=== PATIENT | male | born 1935 | race Caucasian/White ===

== ENCOUNTER 2019-05-27 14:26 | Emergency (ER) | payer MEDICARE, BC ==
[2019-05-27 15:37] LABS: Anisocytosis Slight; Basophils % (A) 0 %; Eosinophils # (A) 0.1 k/uL (0-0.7); Eosinophils % (A) 2 %; HCT 36.3 % (39.0-53.0); HGB 11.4 gm/dL (13.0-17.5); Lymphocytes # (A) 1.4 k/uL (1.0-4.8); Lymphocytes % (A) 22 %; MCH 26.2 pg (25.0-35.0); MCHC 31.5 g/dL (31.0-37.0); MCV 83.2 fL (80.0-100.0); Microcytosis Slight; Monocytes # (A) 0.6 k/uL (0-1.0); Monocytes % (A) 10 %; Neutrophils # (A) 3.8 k/uL (1.3-7.7); Neutrophils % (A) 61 %; Platelet Count 134 k/uL (150-450); RBC 4.36 m/uL (4.30-5.90); RDW 19.7 % (11.5-15.5); WBC 6.1 k/uL (3.8-10.6)
[2019-05-27 15:46] LABS: Albumin 3.7 g/dL (3.5-5.0); Calcium 9.1 mg/dL (8.4-10.2); Potassium 4.6 mmol/L (3.5-5.1); Total Bilirubin 1.3 mg/dL (0.2-1.3); Total Protein 6.5 g/dL (6.3-8.2)
[2019-05-27 15:47] LABS: INR 2.2 (<1.2); Partial Thromboplastin Time 33.2 sec (22.0-30.0)
--- NOTE | 2019-05-27 15:50 | XR ---
EXAMINATION TYPE: XR chest 2V DATE OF EXAM: 05/27/2019 COMPARISON: 11/29/2015 TECHNIQUE: PA and lateral views submitted. HISTORY: Shortness of breath FINDINGS: The lungs are clear and there is no pneumothorax, pleural effusion, or focal pneumonia. Cardiac dev ice seen and is atherosclerotic change aorta. Heart size mildly prominent. Arthropathy shoulders. Deg enerative changes of the spine. There is a wedge deformity midthoracic spine of indeterminate age. IMPRESSION: 1. Cardiomegaly
[2019-05-27] MEDS ORDERED: FUROSEMIDE 10 MG/ML 4 ML VIAL IV STA (16:19)
--- NOTE | 2019-05-27 16:27 | ED ---
Recheck HPI - General Chief Complaint: Recheck/Abnormal Lab/Rx Stated Complaint: CHF Time Seen by Provider: 05/27/19 15:07 Source: patient, family Mode of arrival: ambulatory Limitations: no limitations - Related Data Home Medications Medication Instructions Recorded Confirmed Aspirin EC [Ecotrin Low Dose] 81 mg PO DAILY 10/19/14 05/27/19 Digoxin [Digox] 125 mcg PO DAILY 10/19/14 05/27/19 Lisinopril [Zestril] 2.5 mg PO HS 10/19/14 05/27/19 Metoprolol Succinate (ER) [Toprol 25 mg PO DAILY 10/19/14 05/27/19 XL] Rosuvastatin Calcium [Crestor] 10 mg PO HS 10/19/14 05/27/19 Warfarin [Coumadin] 2.5 mg PO SUMOTUWETHSA 10/19/14 05/27/19 Warfarin [Coumadin] 5 mg PO FR 10/19/14 05/27/19 ALPRAZolam [Xanax] 0.25 mg PO HS 05/27/19 05/27/19 Cetirizine HCl [Zyrtec] 10 mg PO DAILY 05/27/19 05/27/19 Cholestyramine (with Sugar) 4 gm PO DAILY 05/27/19 05/27/19 [Cholestyramine Packet] Furosemide [Lasix] 40 mg PO BID@0800,1200 05/27/19 05/27/19 Melatonin 5 mg PO HS 05/27/19 05/27/19 Spironolactone 25 mg PO DAILY 05/27/19 05/27/19 risperiDONE [RisperDAL] 0.5 mg PO BID 05/27/19 05/27/19 Allergies Allergy/AdvReac Type Severity Reaction Status Date / Time No Known Allergies Allergy Verified 05/27/19 15:23 Review of Systems ROS Statement: Those systems with pertinent positive or pertinent negative responses have been documented in the HPI. ROS Other: All systems not noted in ROS Statement are negative. Past Medical History Past Medical History: Cancer, Heart Failure, GERD/Reflux, Hyperlipidemia, Hypertension, Myocardial Infarction ([place]), Prostate Disorder Additional Past Medical History / Comment(s): CLAUSTROPHOBIA, ENLARGED PROSTATE, had mass in bladder was removed 2013- pt states was not cancerous. NOSE BLEED 2 YRS AGO-WAS CAUTERIZED BY DR KATE, BEEN HAVING NOSEBLEEDS FOR THE LAST 6 WEEKS, WAS IN THE EMERGENCY ROOM X 3 LAST TIME WAS SAT. NITE. DEAF RT EAR, HEARING AIDE LEFT EAR Last Myocardial Infarction Date:: APRIL 2013 History of Any Multi-Drug Resistant Organisms: None Reported Past Surgical History: AICD, Heart Catheterization, Joint Replacement Additional Past Surgical History / Comment(s): EMMANUEL KNEE REPLACEMENT. 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 Type of Cardiac Device: AICD Device Placement Date:: JUL 2013 Past Psychological History: No Psychological Hx Reported Smoking Status: Never smoker Past Alcohol Use History: Occasional Past Drug Use History: None Reported - Past Family History Sister(s) Family Medical History: Cancer Additional Family Medical History / Comment(s): BREAST CANCER General Exam Limitations: no limitations Course Vital Signs 05/27/19 05/27/19 14:28 15:12 Temperature 97.8 F Pulse Rate 74 77 Respiratory 18 22 Rate Blood Pressure 94/58 100/67 O2 Sat by Pulse 93 L 99 Oximetry Medical Decision Making - Lab Data Result diagrams: 05/27/19 15:15 05/27/19 15:15 Lab Results 05/27/19 05/27/19 05/27/19 Range/Units 15:15 15:15 15:15 WBC 6.1 (3.8-10.6) k/uL RBC 4.36 (4.30-5.90) m/uL Hgb 11.4 L (13.0-17.5) gm/dL Hct 36.3 L (39.0-53.0) % MCV 83.2 (80.0-100.0) fL MCH 26.2 (25.0-35.0) pg MCHC 31.5 (31.0-37.0) g/dL RDW 19.7 H (11.5-15.5) % Plt Count 134 L (150-450) k/uL Neutrophils % 61 % Lymphocytes % 22 % Monocytes % 10 % Eosinophils % 2 % Basophils % 0 % Neutrophils # 3.8 (1.3-7.7) k/uL Lymphocytes # 1.4 (1.0-4.8) k/uL Monocytes # 0.6 (0-1.0) k/uL Eosinophils # 0.1 (0-0.7) k/uL Basophils # 0.0 (0-0.2) k/uL Anisocytosis Slight Microcytosis Slight PT (9.0-12.0) sec INR (<1.2) APTT (22.0-30.0) sec Sodium 135 L (137-145) mmol/L Potassium 4.6 (3.5-5.1) mmol/L Chloride 99 (98-107) mmol/L Carbon Dioxide 27 (22-30) mmol/L Anion Gap 9 mmol/L BUN 39 H (9-20) mg/dL Creatinine 1.31 H (0.66-1.25) mg/dL Est GFR (CKD-EPI)AfAm 58 (>60 ml/min/1.73 sqM) Est GFR (CKD-EPI)NonAf 50 (>60 ml/min/1.73 sqM) Glucose 82 (74-99) mg/dL Calcium 9.1 (8.4-10.2) mg/dL Total Bilirubin 1.3 (0.2-1.3) mg/dL AST 30 (17-59) U/L ALT 19 L (21-72) U/L Alkaline Phosphatase 119 (38-126) U/L Troponin I (0.000-0.034) ng/mL NT-Pro-B Natriuret Pep 3630 pg/mL Total Protein 6.5 (6.3-8.2) g/dL Albumin 3.7 (3.5-5.0) g/dL 05/27/19 05/27/19 Range/Units 15:15 15:15 WBC (3.8-10.6) k/uL RBC (4.30-5.90) m/uL Hgb (13.0-17.5) gm/dL Hct (39.0-53.0) % MCV (80.0-100.0) fL MCH (25.0-35.0) pg MCHC (31.0-37.0) g/dL RDW (11.5-15.5) % Plt Count (150-450) k/uL Neutrophils % % Lymphocytes % % Monocytes % % Eosinophils % % Basophils % % Neutrophils # (1.3-7.7) k/uL Lymphocytes # (1.0-4.8) k/uL Monocytes # (0-1.0) k/uL Eosinophils # (0-0.7) k/uL Basophils # (0-0.2) k/uL Anisocytosis Microcytosis PT 21.0 H (9.0-12.0) sec INR 2.2 H (<1.2) APTT 33.2 H (22.0-30.0) sec Sodium (137-145) mmol/L Potassium (3.5-5.1) mmol/L Chloride (98-107) mmol/L Carbon Dioxide (22-30) mmol/L Anion Gap mmol/L BUN (9-20) mg/dL Creatinine (0.66-1.25) mg/dL Est GFR (CKD-EPI)AfAm (>60 ml/min/1.73 sqM) Est GFR (CKD-EPI)NonAf (>60 ml/min/1.73 sqM) Glucose (74-99) mg/dL Calcium (8.4-10.2) mg/dL Total Bilirubin (0.2-1.3) mg/dL AST (17-59) U/L ALT (21-72) U/L Alkaline Phosphatase (38-126) U/L Troponin I <0.012 (0.000-0.034) ng/mL NT-Pro-B Natriuret Pep pg/mL Total Protein (6.3-8.2) g/dL Albumin (3.5-5.0) g/dL Disposition Referrals: Magdaleno Singh MD [Primary Care Provider] - 1-2 days
--- NOTE | 2019-05-27 16:39 | ED ---
General Adult HPI - General Chief complaint: Recheck/Abnormal Lab/Rx Stated complaint: CHF Time Seen by Provider: 05/27/19 15:07 Source: patient, family Mode of arrival: ambulatory Limitations: no limitations - History of Present Illness Initial comments: 83-year-old male presenting for leg swelling testicular swelling. Ongoing for the past 10 days. Patient states the past 10 days he has had leg and testicular swelling. History of CHF. States that his primary parent care provider increase his 6 dose 6 days prior. He states that since his swelling of his testicles as well as his legs has been going down. Denies any chest pain shortness of breath he states he is able to ambulate without any significant shortness of breath including to his mailbox which is over 600 feet. He states he feels like he could not a marathon. Patient denies orthopnea able to lay flat without difficulty. Patient states that he has pain when his testicles brushed up against things otherwise there is no significant tenderness. No penile proportion no abdominal pain. Remaining review of systems negative. Patient presented due to the persistence of testicular swelling. Remaining review of systems negative patient appears well upon arrival. - Related Data Home Medications Medication Instructions Recorded Confirmed Aspirin EC [Ecotrin Low Dose] 81 mg PO DAILY 10/19/14 05/27/19 Digoxin [Digox] 125 mcg PO DAILY 10/19/14 05/27/19 Lisinopril [Zestril] 2.5 mg PO HS 10/19/14 05/27/19 Metoprolol Succinate (ER) [Toprol 25 mg PO DAILY 10/19/14 05/27/19 XL] Rosuvastatin Calcium [Crestor] 10 mg PO HS 10/19/14 05/27/19 Warfarin [Coumadin] 2.5 mg PO SUMOTUWETHSA 10/19/14 05/27/19 Warfarin [Coumadin] 5 mg PO FR 10/19/14 05/27/19 ALPRAZolam [Xanax] 0.25 mg PO HS 05/27/19 05/27/19 Cetirizine HCl [Zyrtec] 10 mg PO DAILY 05/27/19 05/27/19 Cholestyramine (with Sugar) 4 gm PO DAILY 05/27/19 05/27/19 [Cholestyramine Packet] Furosemide [Lasix] 40 mg PO BID@0800,1200 05/27/19 05/27/19 Melatonin 5 mg PO HS 05/27/19 05/27/19 Spironolactone 25 mg PO DAILY 05/27/19 05/27/19 risperiDONE [RisperDAL] 0.5 mg PO BID 05/27/19 05/27/19 Allergies Allergy/AdvReac Type Severity Reaction Status Date / Time No Known Allergies Allergy Verified 05/27/19 15:23 Review of Systems ROS Statement: Those systems with pertinent positive or pertinent negative responses have been documented in the HPI. ROS Other: All systems not noted in ROS Statement are negative. Past Medical History Past Medical History: Cancer, Heart Failure, GERD/Reflux, Hyperlipidemia, Hypert ension, Myocardial Infarction ([place]), Prostate Disorder Additional Past Medical History / Comment(s): CLAUSTROPHOBIA, ENLARGED PROSTATE, had mass in bladder was removed 2013- pt states was not cancerous. NOSE BLEED 2 YRS AGO-WAS CAUTERIZED BY DR KATE, BEEN HAVING NOSEBLEEDS FOR THE LAST 6 WEEKS, WAS IN THE EMERGENCY ROOM X 3 LAST TIME WAS SAT. NITE. DEAF RT EAR, HEARING AIDE LEFT EAR Last Myocardial Infarction Date:: APRIL 2013 History of Any Multi-Drug Resistant Organisms: None Reported Past Surgical History: AICD, Heart Catheterization, Joint Replacement Additional Past Surgical History / Comment(s): EMMANUEL KNEE REPLACEMENT. 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 Type of Cardiac Device: AICD Device Placement Date:: JUL 2013 Past Psychological History: No Psychological Hx Reported Smoking Status: Never smoker Past Alcohol Use History: Occasional Past Drug Use History: None Reported - Past Family History Sister(s) Family Medical History: Cancer Additional Family Medical History / Comment(s): BREAST CANCER General Exam - General Exam Comments Initial Comments: General: The patient is awake and alert, in no distress, and does not appear acutely ill. Eye: +3 mm pupils are equal, round and reactive to light, extra-ocular movements are intact. No nystagmus. There is normal conjunctiva bilaterally. No signs of icterus. Ears, nose, mouth and throat: There are moist mucous membranes and no oral lesions. Neck: The neck is supple, there is no tenderness or JVD. Cardiovascular: There is a regular rate and rhythm. No murmur, rub or gallop is appreciated. Respiratory: Lungs are clear to auscultation, respirations are non-labored, breath sounds are equal. No wheezes, stridor, rales, or rhonchi. Gastrointestinal: Soft, non-distended, non-tender abdomen without masses or organomegaly noted. There is no rebound or guarding present. No CVA tenderness. Bowel sounds are unremarkable. Testicles swollen,b/l. Non erytematous. No tenderness to palpation.No palpable masses. Musculoskeletal: Normal ROM, no tenderness. Strength 5/5. Sensation intact. Radial and DP pulses equal bilaterally 2+. Neurological: A&O x 3. CN II-XII intact, There are no obvious motor or sensory deficits. Coordination appears grossly intact. Speech is normal. Skin: Skin is warm and dry and no rashes or lesions are noted. LE pitting edema b/l Psychiatric: Cooperative, appropriate mood & affect, normal judgment. Limitations: no limitations Course Vital Signs 05/27/19 05/27/19 05/27/19 14:28 15:12 16:50 Temperature 97.8 F 98.2 F Pulse Rate 74 77 75 Respiratory 18 22 18 Rate Blood Pressure 94/58 100/67 104/65 O2 Sat by Pulse 93 L 99 96 Oximetry EKG Findings - EKG Comments: EKG Findings:: Ventricular rate 80 bpm, QRS duration 170 ms, QT/QTC 426/491 ms. This is a ventricularly paced rhythm. Medical Decision Making - Medical Decision Making Welll appearing 83yo wiht complaints of resolving LE edema and scrotal swelling. No SOB. NO CP. No orthopnea or SOB with exertion. Patient BNP elevated, known history of CHF with pacemkaer. EKG ventricularly paced. NO elevated of ST segements. Troponin (-). CXR no pulmonary congestions. Patient symptoms improving. At this time after discussing the case with Dr. Doll patient is stable for discharge with outpatient primary care follow-up. Recommended AUTUMN hose as well as decreased oral intake. Patient is agreeable to this plan and happy that he is being discharged home. Laboratory studies within acceptable limits. The patient was discharged appearing well return parameters were discussed at length - Lab Data Result diagrams: 05/27/19 15:15 05/27/19 15:15 Lab Results 05/27/19 05/27/19 05/27/19 Range/Units 15:15 15:15 15:15 WBC 6.1 (3.8-10.6) k/uL RBC 4.36 (4.30-5.90) m/uL Hgb 11.4 L (13.0-17.5) gm/dL Hct 36.3 L (39.0-53.0) % MCV 83.2 (80.0-100.0) fL MCH 26.2 (25.0-35.0) pg MCHC 31.5 (31.0-37.0) g/dL RDW 19.7 H (11.5-15.5) % Plt Count 134 L (150-450) k/uL Neutrophils % 61 % Lymphocytes % 22 % Monocytes % 10 % Eosinophils % 2 % Basophils % 0 % Neutrophils # 3.8 (1.3-7.7) k/uL Lymphocytes # 1.4 (1.0-4.8) k/uL Monocytes # 0.6 (0-1.0) k/uL Eosinophils # 0.1 (0-0.7) k/uL Basophils # 0.0 (0-0.2) k/uL Anisocytosis Slight Microcytosis Slight PT (9.0-12.0) sec INR (<1.2) APTT (22.0-30.0) sec Sodium 135 L (137-145) mmol/L Potassium 4.6 (3.5-5.1) mmol/L Chloride 99 (98-107) mmol/L Carbon Dioxide 27 (22-30) mmol/L Anion Gap 9 mmol/L BUN 39 H (9-20) mg/dL Creatinine 1.31 H (0.66-1.25) mg/dL Est GFR (CKD-EPI)AfAm 58 (>60 ml/min/1.73 sqM) Est GFR (CKD-EPI)NonAf 50 (>60 ml/min/1.73 sqM) Glucose 82 (74-99) mg/dL Calcium 9.1 (8.4-10.2) mg/dL Total Bilirubin 1.3 (0.2-1.3) mg/dL AST 30 (17-59) U/L ALT 19 L (21-72) U/L Alkaline Phosphatase 119 (38-126) U/L Troponin I (0.000-0.034) ng/mL NT-Pro-B Natriuret Pep 3630 pg/mL Total Protein 6.5 (6.3-8.2) g/dL Albumin 3.7 (3.5-5.0) g/dL 05/27/19 05/27/19 Range/Units 15:15 15:15 WBC (3.8-10.6) k/uL RBC (4.30-5.90) m/uL Hgb (13.0-17.5) gm/dL Hct (39.0-53.0) % MCV (80.0-100.0) fL MCH (25.0-35.0) pg MCHC (31.0-37.0) g/dL RDW (11.5-15.5) % Plt Count (150-450) k/uL Neutrophils % % Lymphocytes % % Monocytes % % Eosinophils % % Basophils % % Neutrophils # (1.3-7.7) k/uL Lymphocytes # (1.0-4.8) k/uL Monocytes # (0-1.0) k/uL Eosinophils # (0-0.7) k/uL Basophils # (0-0.2) k/uL Anisocytosis Microcytosis PT 21.0 H (9.0-12.0) sec INR 2.2 H (<1.2) APTT 33.2 H (22.0-30.0) sec Sodium (137-145) mmol/L Potassium (3.5-5.1) mmol/L Chloride (98-107) mmol/L Carbon Dioxide (22-30) mmol/L Anion Gap mmol/L BUN (9-20) mg/dL Creatinine (0.66-1.25) mg/dL Est GFR (CKD-EPI)AfAm (>60 ml/min/1.73 sqM) Est GFR (CKD-EPI)NonAf (>60 ml/min/1.73 sqM) Glucose (74-99) mg/dL Calcium (8.4-10.2) mg/dL Total Bilirubin (0.2-1.3) mg/dL AST (17-59) U/L ALT (21-72) U/L Alkaline Phosphatase (38-126) U/L Troponin I <0.012 (0.000-0.034) ng/mL NT-Pro-B Natriuret Pep pg/mL Total Protein (6.3-8.2) g/dL Albumin (3.5-5.0) g/dL Disposition Clinical Impression: CHF (congestive heart failure), Testicular swelling, Elevated BUN, Elevated serum creatinine, Elevated brain natriuretic peptide (BNP) level Disposition: HOME SELF-CARE Condition: Good Instructions (If sedation given, give patient instructions): Heart Failure ([place]) Additional Instructions: Please use medication as discussed. Please follow-up with family doctor in the next 2 days. Please return to emergency room if the symptoms increase or worsen or for any other concerns. Is patient prescribed a controlled substance at d/c from ED?: No Referrals: Magdaleno Singh MD [Primary Care Provider] - 1-2 days Time of Disposition: 16:38
[2019-05-27 17:42] VITALS: BP 104/65; PULSE 75; RESP 18; TEMP 98.2
== END 2019-05-27 16:50 | disposition home or self-care (01) ==
LOC: EC 14:26
DX: I11.0 Hypertensive heart disease with heart failure (principal); I50.9 Heart failure, unspecified; R79.89 Other specified abnormal findings of blood chemistry; N50.89 Other specified disorders of the male genital organs; E78.5 Hyperlipidemia, unspecified; I25.2 Old myocardial infarction; Z95.810 Presence of automatic (implantable) cardiac defibrillator; Z95.818 Presence of other cardiac implants and grafts; Z96.653 Presence of artificial knee joint, bilateral; Z85.9 Personal history of malignant neoplasm, unspecified; Z79.82 Long term (current) use of aspirin; Z79.01 Long term (current) use of anticoagulants; Z79.899 Other long term (current) drug therapy
CPT/HCPCS: 36415; 93005; 83880; 80053; 84484; 85025; 85610; 85730; 71046; 99284; 96374; J1940

== ENCOUNTER 2019-07-23 10:42 | Day surgery (SDC) | payer MEDICARE, BC ==
[2019-07-21 11:52] VITALS: BMI 27.2
[~2019-07-23 10:42] MED LIST: LIDOCAINE 1% 20 ML VIAL (10MG/ML) FOR IV START INTRADERMA PRN; ceFAZolin 1,000 MG in SODIUM CHLORIDE 0.9% IRRIGATIO 250 ML IRRIGATION ONE
[2019-07-23] MEDS ORDERED: SODIUM CHLORIDE 0.9% 1,000 ML IV ONE (11:10)
[2019-07-23 11:33] LABS: INR 1.2 (<1.2); Prothrombin Time 12.4 sec (9.0-12.0)
[2019-07-23] MEDS ORDERED: MIDAZOLAM 2 MG/2 ML VIAL ONE (12:03)
[2019-07-23] MEDS ORDERED: fentaNYL (PF) 50 MCG/ML 2 ML AMP ONE (12:03)
[2019-07-23] MEDS ORDERED: LIDOCAINE 1% INJ 10MG/ML (20 ML MDV) ONE (12:30)
[2019-07-23] MEDS ORDERED: HEPARIN SODIUM 1,000 UN/ML (10ML VL) ONE (12:30)
[2019-07-23] MEDS ORDERED: LIDOCAINE 1% INJ 10MG/ML (20 ML MDV) SQ ONE (12:38)
[2019-07-23] MEDS ORDERED: ACETAMINOPHEN TAB 325 MG TAB PO PRN (13:29)
[2019-07-23] MEDS: LACTATED RINGERS 1,000 ML IV SCH (16:42)
[2019-07-23] MEDS: SODIUM CHLORIDE 0.9% 1,000 ML IV SCH ×2 (16:43)
[2019-07-23] MEDS ORDERED: WARFARIN 2.5 MG TAB PO SCH (18:00)
--- NOTE | 2019-07-23 18:27 | P.PCN ---
Date of Procedure: 07/23/19 Preoperative Diagnosis: History of by biventricular AICD placement Postoperative Diagnosis: Generator change to Biventricular pacemaker only as per the request of the patient and family Description of Procedure: HISTORY: This is a 83-year-old gentleman with history of biventricular AICD placement. His device has reached JOSH. Patient is brought in for elective replacement of the battery with change to only by ventricular pacemaker as per the request of the patient and family. CONSENT: I have discussed the risks and benefits as related to the above mentioned procedure and both sedation/analgesia as well as necessary blood product administration. The patient has indicated understanding and acceptance of the risks of the procedure discussed. PROCEDURE: Patient was brought to the lab in a fasting state. Patient was given sedation by department of anesthesia. The skin over the existing pulse generator was infiltrated with lidocaine. An incision was made in the skin and was deepened until the pectoral fascia was exposed. Hemostasis was obtained. The existing pulse generator was pulled out of the pocket. The leads were disconnected and were checked for thresholds. Consults sedation as per anesthesia Duration 35 minutes minutes THRESHOLDS: ATRIAL: The minimum pacing threshold is 0.75 V at pulse width of 0.4. P-wave: 1.5 V and the impedance is 456 ohms RIGHT VENTRICULAR: The minimal pacing threshold is 0.5 at pulse width of 0.4 ms R-wave: 3.8 volts and impedance is 380 ohms. LEFT VENTRICULAR: The minimal pacing threshold is 0.5 V at pulse width of 0.4 ms and impedance is 456 THE LEADS: ATRIAL:. This is manufactured by [employer]. Model number is 5076-52. The serial number [id number] THE RIGHT VENTRICULAR: This is manufactured by [employer]. Model number is [id number] and the serial number is [id number] THE LEFT VENTRICULAR: This is manufactured by [employer]. Model number is [id number] and the serial number is [id number] THE EXPLANTED DEVICE: The explanted device is manufactured by [employer]. Model number is [id number] and the serial number is [id number] THE NEW DEVICE: This is manufactured by [employer]. Model number is [id number] and the serial number is [id number] Gerardo The leads were then connected to a new pulse generator. Pacemaker seems to function normally. The pocket was irrigated with antibiotics. The pocket was closed in the usual fashion. Pectoral fascia was closed with 2-0 Prolene, the subcutaneous tissue was closed with 3-0 Prolene and the skin was closed with 4-0 Prolene. Patient tolerated the procedure well . Patient will be monitored on the telemetry unit for 2-3 hours. If stable patient be discharged home later today. The defibrillator lead was An sutured to the floor PLAN: Patient will be monitored for the next 24 hours. If stable patient will be discharged home tomorrow. Prophylactic antibiotics to be continued FALLOW UP:. Follow-up with Dr. Reese in one week
[2019-07-23 19:14] VITALS: RESP 18
[2019-07-23] MEDS ORDERED: MELATONIN 5 MG TABLET PO SCH (21:00)
[2019-07-23] MEDS ORDERED: LISINOPRIL 2.5 MG TAB PO SCH (21:00)
[2019-07-23] MEDS ORDERED: ALPRAZolam 0.25 MG TAB PO SCH (21:00)
[2019-07-24] MEDS: SODIUM CHLORIDE 0.9% 1,000 ML IV SCH ×2 (02:45)
[2019-07-24] MEDS: LACTATED RINGERS 1,000 ML IV SCH (02:46)
[2019-07-24 06:41] LABS: INR 1.2 (<1.2); Prothrombin Time 12.2 sec (9.0-12.0)
[2019-07-24] MEDS ORDERED: DIGOXIN 125 MCG TAB PO SCH (09:00)
[2019-07-24] MEDS ORDERED: METOPROLOL SUCCINATE (ER) 25 MG TAB.ER.24H PO SCH (09:00)
[2019-07-24] MEDS ORDERED: ASPIRIN 81 MG PO SCH (09:00)
[2019-07-24] MEDS ORDERED: FUROSEMIDE 40 MG TAB PO SCH (09:00)
[2019-07-24] MEDS ORDERED: LORATADINE 10 MG TAB PO SCH (09:00)
[2019-07-24 12:21] VITALS: BP 101/65; PULSE 70; TEMP 97.4
[2019-07-25] MEDS ORDERED: WARFARIN 5 MG TAB PO SCH (18:00)
== END 2019-07-24 16:00 | disposition home or self-care (01) ==
LOC: CATHEP 10:42 → 1SOBS 15:12 → CATHEP 07-24 16:00
PROVIDERS: ATTEND Internal Medicine Cardiovascular Disease
DX: I47.2 Ventricular tachycardia (principal); Z45.02 Encounter for adjustment and management of automatic implantable cardiac defibrillator; I48.91 Unspecified atrial fibrillation; I11.0 Hypertensive heart disease with heart failure; E78.5 Hyperlipidemia, unspecified; I50.22 Chronic systolic (congestive) heart failure; I34.0 Nonrheumatic mitral (valve) insufficiency; Z79.82 Long term (current) use of aspirin; Z79.899 Other long term (current) drug therapy
CPT/HCPCS: 33241; 33221; 85610 ×2; C2621; J2250; J0690 ×2; J2001; J3010; 33229